=== PATIENT | male | born 1960 | race Caucasian/White ===

== ENCOUNTER → 2024-04-24 | Day surgery (SDC) | payer MEDICARE, MEDICAID ==
[~2024-04-24] VITALS: Ht 170.2 cm; Wt 81.4 kg
[~2024-04-24] MED LIST: ASPI-1264 PO; FEXO-25 PO; IBUP-1985 PO; LIDOcaine 2% (20mg/ml) 5ml vial ONE; MELO-102 PO; OMEP20CA15 PO; ROPIVAcaine 0.5% (5mg/ml) 30ml vial ONE; Thrombin (Bovine) 5,000 unit vial TP ONE; fentaNYL/PF 50MCG/1 ML 2ML syringe ONE; gelatin sponge, absorbable (Gelfoam 100) sponge TP ONE; methylene blue (5mg/ml) 50mg/10ml ampul IV ONE; midazolam 1 mg/ML 2ml injection ONE; propofol inj 0 ML IV ONE; succinylcholine 20mg/ml inj IV ONE; tobramycin sulfate 1.2gm vial ONE; vancomycin 1,000mg inj ONE
[2024-04-24] MEDS: tranexamic acid inj. 1,000 MG in normal saline IV soln 100ML IV ONE (05:30)
[2024-04-24] MEDS: cefazolin 2gm/D5W 100mL 100 ML IV ONE (05:30)
[2024-04-24 10:08] VITALS: BP 139/88; PULSE 61; RESP 16; TEMP 99; O2SAT 96
[2024-04-24 11:05] LABS: BASOPHILS # (AUTO) 0.1 X10'3 (0-0.2); BASOPHILS % (AUTO) 1.3 % (0-1); EOSINOPHILS # (AUTO) 0.4 X10'3 (0-0.9); EOSINOPHILS % (AUTO) 6.4 % (0-6); HEMATOCRIT 35.3 % (42.0-52.0); HEMOGLOBIN 11.5 g/dl (14.0-17.9); LYMPHOCYTES % (AUTO) 16.5 % (21-51); MEAN CORPUSCULAR HEMOGLOBIN 28.5 PG (27.0-31.0); MEAN CORPUSCULAR HGB CONC 32.6 g/dL (33.0-36.5); MEAN CORPUSCULAR VOLUME 87.4 FL (78-98); MEAN PLATELET VOLUME 6.9 FL (7.4-10.4); MONOCYTES # (AUTO) 0.6 X10'3 (0-0.9); MONOCYTES % (AUTO) 9.4 % (2-12); NEUTROPHILS % (AUTO) 66.4 % (42-75); PLATELET COUNT 586 X10'3 (140-440); RED BLOOD COUNT 4.04 X10'6 (4.70-6.10); RED CELL DISTRIBUTION WIDTH 16.5 % (11.5-14.5)
[2024-04-24] MEDS: famotidine 20mg tablet PO ONE (11:05)
[2024-04-24] MEDS: ringers solution, lacted 1,000 ML IV SCH (11:06)
[2024-04-24 11:15] LABS: PRE OP PARTIAL THROMB. TIME 32 SECONDS (22-32); PROTHROMBIN TIME 10.9 SECONDS (9.0-12.0)
[2024-04-24 11:16] LABS: ALANINE AMINOTRANSFERASE 35 U/L (12-78); ALBUMIN 3.3 G/DL (3.4-5.0); ALBUMIN/GLOBULIN RATIO 0.8 (1.1-1.5); ALKALINE PHOSPHATASE 118 IU/L (46-116); ANION GAP 12 (8-16); ASPARTATE AMINO TRANSFERASE 21 U/L (10-37); BILIRUBIN,TOTAL 0.5 MG/DL (0.1-1.0); BLOOD UREA NITROGEN 25 MG/DL (7-18); BUN/CREATININE RATIO 30.5 (10.0-20.0); CALCIUM 9.1 MG/DL (8.5-10.1); CHLORIDE 103 MMOL/L (99-107); CREATININE 0.82 MG/DL (0.60-1.10); GLUCOSE 100 MG/DL (70-104); POTASSIUM 3.9 MMOL/L (3.5-5.1); SODIUM 138 MMOL/L (135-145); TOTAL CARBON DIOXIDE 23.4 MMOL/L (24-32); TOTAL PROTEIN 7.4 G/DL (6.4-8.2); eCRCL 84 ML/MIN; eGFR > 90 ML/MIN
== END | disposition home or self-care (01) ==
LOC: PAS 09:58 → UNDOADMIN 09:58 → PAS IN 09:58 → EDSTATUS 13:00
PROVIDERS: ATTEND Specialist
DX: T84.098A Other mechanical complication of other internal joint prosthesis, initial encounter (principal); Z53.8 Procedure and treatment not carried out for other reasons; Z96.653 Presence of artificial knee joint, bilateral; Y79.2 Prosthetic and other implants, materials and accessory orthopedic devices associated with adverse incidents; Y92.89 Other specified places as the place of occurrence of the external cause
CPT/HCPCS: 36415; 80053; 82948; 85025; 85610; 85730; 86870; 86885; 86900; 86901; 86902; 86905; 86922; 87081; 93005; J0690; J2250; J3010; J3490; J7120; 86920; J0330; J2704; J2795; J3260; J3370; Q9968

== ENCOUNTER 2024-04-27 11:57 | Inpatient (IN) | payer MEDICARE, MEDICAID ==
[~2024-04-27] VITALS: Ht 170.2 cm; Wt 78.8 kg
[2024-04-27] VITALS (25 sets, daily range): BP systolic 102–143; BP diastolic 59–97; PULSE 54–77; RESP 10–24; TEMP 97.9–98.1; O2SAT 93–97
[2024-04-27] MEDS: cefazolin 2gm/D5W 100mL 100 ML IV ONE (11:55)
[2024-04-27] MEDS: tranexamic acid inj. 1,000 MG in normal saline IV soln 100ML IV ONE (11:55)
[~2024-04-27 11:57] MED LIST changes: -LIDOcaine 2% (20mg/ml) 5ml vial ONE; -ROPIVAcaine 0.5% (5mg/ml) 30ml vial ONE; -Thrombin (Bovine) 5,000 unit vial TP ONE; +famotidine 20mg tablet PO ONE; -fentaNYL/PF 50MCG/1 ML 2ML syringe ONE; -gelatin sponge, absorbable (Gelfoam 100) sponge TP ONE; -methylene blue (5mg/ml) 50mg/10ml ampul IV ONE; -midazolam 1 mg/ML 2ml injection ONE; -propofol inj 0 ML IV ONE; -succinylcholine 20mg/ml inj IV ONE; -tobramycin sulfate 1.2gm vial ONE; -vancomycin 1,000mg inj ONE
[2024-04-27] MEDS: famotidine 20mg tablet PO ONE (12:54)
[2024-04-27] MEDS: ringers solution, lacted 1,000 ML IV SCH (12:54)
[2024-04-27] MEDS: vancomycin 1,000mg inj ONE (14:15)
[2024-04-27] MEDS: methylene blue (5mg/ml) 50mg/10ml ampul IV ONE (14:16)
[2024-04-27] MEDS: tobramycin sulfate 1.2gm vial ONE (14:17)
[2024-04-27] MEDS: Thrombin (Bovine) 5,000 unit vial TP ONE (14:17)
[2024-04-27] MEDS: gelatin sponge, absorbable (Gelfoam 100) sponge TP ONE (14:18)
[2024-04-27] MEDS ORDERED: bisacodyl 10mg suppository rectal RC PRN (14:30)
[2024-04-27] MEDS ORDERED: naloxone 0.4 mg/ml inj IV PRN (14:30)
[2024-04-27] MEDS ORDERED: diphenhydrAMINE 25mg capsule PO PRN (14:30)
[2024-04-27] MEDS ORDERED: HYDROcodone/acetaminophen 5mg/325mg tablet PO PRN (14:30)
[2024-04-27] MEDS ORDERED: magnesium hydroxide 30ml (MOM) UD suspension PO PRN (14:30)
[2024-04-27] MEDS ORDERED: ondansetron/PF 4mg/2ml inj IV PRN ×2 (14:30→15:25)
[2024-04-27] MEDS ORDERED: acetaminophen 325mg tablet PO PRN (14:30)
[2024-04-27] MEDS ORDERED: fentaNYL/PF 50MCG/1 ML 2ML syringe ONE ×2 (14:40→15:37)
[2024-04-27] MEDS ORDERED: sevoflurane 250ml liquid IH ONE (14:40)
[2024-04-27] MEDS ORDERED: midazolam 1 mg/ML 2ml injection ONE (14:40)
[2024-04-27] MEDS ORDERED: propofol inj 20 ML IV ONE (14:42)
[2024-04-27] MEDS ORDERED: dexamethasone sod phosphate 4mg/ml inj. ONE (14:42)
[2024-04-27] MEDS ORDERED: LIDOcaine 2% (20mg/ml) 5ml vial ONE (14:42)
[2024-04-27] MEDS ORDERED: ondansetron/PF 4mg/2ml inj ONE (14:42)
[2024-04-27] MEDS ORDERED: ROPIVAcaine 0.5% (5mg/ml) 30ml vial ONE (14:42)
[2024-04-27] MEDS ORDERED: succinylcholine 20mg/ml inj IV ONE (14:42)
[2024-04-27] MEDS ORDERED: hydrALAZINE 20mg/ml inj. IV PRN (15:25)
[2024-04-27] MEDS ORDERED: ringers solution, lacted 1,000 ML IV SCH (15:25)
[2024-04-27] MEDS ORDERED: fentaNYL/PF 50MCG/1 ML 2ML syringe IV PRN ×2 (15:25)
[2024-04-27] MEDS ORDERED: enalaprilat dihydrate 2.5mg/2ml vial IV PRN (15:25)
[2024-04-27] MEDS ORDERED: morphine 4 MG/ML inj SYRINge IV PRN (15:25)
[2024-04-27] MEDS ORDERED: morphine 2 MG/ML inj. syringe IV PRN (15:25)
[2024-04-27] MEDS: vancomycin 1,000mg inj IVT ONE (16:25)
[2024-04-27] MEDS ORDERED: ketamine 50mg/5ml syringe ONE (16:35)
[2024-04-27] MEDS ORDERED: morphine 10mg/ml inj. ONE (16:36)
[2024-04-27] MEDS ORDERED: cetirizine 10mg tablet PO PRN (17:35)
[2024-04-27] MEDS: HYDROcodone/acetaminophen 5mg/325mg tablet PO PRN (19:22)
[2024-04-27] MEDS: potassium cl 20mEq in 1/2 NS 1,000 ML IV SCH (20:13)
[2024-04-27 21:00] LABS: BASOPHILS % (AUTO) 0.3 % (0-1); EOSINOPHILS % (AUTO) 0 % (0-6); HEMATOCRIT 33.2 % (42.0-52.0); HEMOGLOBIN 10.9 g/dl (14.0-17.9); LYMPHOCYTES # (AUTO) 0.3 X10'3 (1.1-4.8); LYMPHOCYTES % (AUTO) 3.6 % (21-51); MEAN CORPUSCULAR HEMOGLOBIN 28.4 PG (27.0-31.0); MEAN CORPUSCULAR HGB CONC 32.8 g/dL (33.0-36.5); MEAN CORPUSCULAR VOLUME 86.6 FL (78-98); MEAN PLATELET VOLUME 7.1 FL (7.4-10.4); MONOCYTES # (AUTO) 0.1 X10'3 (0-0.9); NEUTROPHILS # (AUTO) 8.4 X10'3 (1.8-7.7); NEUTROPHILS % (AUTO) 95.1 % (42-75); PLATELET COUNT 473 X10'3 (140-440); RED BLOOD COUNT 3.84 X10'6 (4.70-6.10); RED CELL DISTRIBUTION WIDTH 16.5 % (11.5-14.5); WHITE BLOOD COUNT 8.8 X10'3 (4.5-11.0)
[2024-04-27 21:17] LABS: ALANINE AMINOTRANSFERASE 27 U/L (12-78); ALBUMIN 2.9 G/DL (3.4-5.0); ALBUMIN/GLOBULIN RATIO 0.8 (1.1-1.5); ALKALINE PHOSPHATASE 110 IU/L (46-116); ANION GAP 11 (8-16); ASPARTATE AMINO TRANSFERASE 19 U/L (10-37); BILIRUBIN,TOTAL 0.4 MG/DL (0.1-1.0); BLOOD UREA NITROGEN 11 MG/DL (7-18); BUN/CREATININE RATIO 11.8 (10.0-20.0); CALCIUM 8.8 MG/DL (8.5-10.1); CHLORIDE 101 MMOL/L (99-107); CREATININE 0.93 MG/DL (0.60-1.10); GLUCOSE 174 MG/DL (70-104); POTASSIUM 3.7 MMOL/L (3.5-5.1); SODIUM 137 MMOL/L (135-145); TOTAL CARBON DIOXIDE 24.7 MMOL/L (24-32); TOTAL PROTEIN 6.6 G/DL (6.4-8.2); eCRCL 74 ML/MIN; eGFR 82 ML/MIN
[2024-04-27 21:25] LABS: MAGNESIUM 1.7 MG/DL (1.5-2.4); PHOSPHORUS 2.8 MG/DL (2.3-4.5)
[2024-04-27 21:52] LABS: THYROID STIMULATING HORMONE 0.24 ulU/ml (0.34-4.50)
[2024-04-28] VITALS (8 sets, daily range): BP systolic 106–133; BP diastolic 66–92; PULSE 53–72; RESP 15–18; TEMP 97.7–98.1; O2SAT 93–98
[2024-04-28] MEDS: cefazolin 2gm/D5W 100mL 100 ML IV SCH ×2 (00:11→08:16)
[2024-04-28 05:00] LABS: BASOPHILS % (AUTO) 0.1 % (0-1); EOSINOPHILS % (AUTO) 0 % (0-6); HEMATOCRIT 30.4 % (42.0-52.0); HEMOGLOBIN 9.9 g/dl (14.0-17.9); LYMPHOCYTES # (AUTO) 0.7 X10'3 (1.1-4.8); LYMPHOCYTES % (AUTO) 12.3 % (21-51); MEAN CORPUSCULAR HEMOGLOBIN 28.3 PG (27.0-31.0); MEAN CORPUSCULAR HGB CONC 32.8 g/dL (33.0-36.5); MEAN CORPUSCULAR VOLUME 86.3 FL (78-98); MEAN PLATELET VOLUME 6.8 FL (7.4-10.4); MONOCYTES # (AUTO) 0.3 X10'3 (0-0.9); MONOCYTES % (AUTO) 5.4 % (2-12); NEUTROPHILS # (AUTO) 4.6 X10'3 (1.8-7.7); NEUTROPHILS % (AUTO) 82.2 % (42-75); PLATELET COUNT 446 X10'3 (140-440); RED BLOOD COUNT 3.52 X10'6 (4.70-6.10); RED CELL DISTRIBUTION WIDTH 16.3 % (11.5-14.5); WHITE BLOOD COUNT 5.6 X10'3 (4.5-11.0)
[2024-04-28 05:15] LABS: ALANINE AMINOTRANSFERASE 26 U/L (12-78); ALBUMIN 2.8 G/DL (3.4-5.0); ALBUMIN/GLOBULIN RATIO 0.8 (1.1-1.5); ALKALINE PHOSPHATASE 103 IU/L (46-116); ANION GAP 10 (8-16); ASPARTATE AMINO TRANSFERASE 20 U/L (10-37); BILIRUBIN,TOTAL 0.5 MG/DL (0.1-1.0); BLOOD UREA NITROGEN 12 MG/DL (7-18); BUN/CREATININE RATIO 14.8 (10.0-20.0); CALCIUM 8.6 MG/DL (8.5-10.1); CHLORIDE 101 MMOL/L (99-107); CREATININE 0.81 MG/DL (0.60-1.10); GLUCOSE 144 MG/DL (70-104); POTASSIUM 4.3 MMOL/L (3.5-5.1); SODIUM 134 MMOL/L (135-145); TOTAL CARBON DIOXIDE 23.2 MMOL/L (24-32); TOTAL PROTEIN 6.4 G/DL (6.4-8.2); eCRCL 84 ML/MIN; eGFR > 90 ML/MIN
[2024-04-28] MEDS: pantoprazole 40mg Tablet.DR PO SCH (07:30)
[2024-04-28] MEDS: aspirin 325mg tablet PO SCH (07:35)
[2024-04-28] MEDS: MELOXICAM 7.5 MG TABLET PO SCH (08:16)
[2024-04-28 10:26] LABS: FREE T4 (FREE THYROXINE) 1.01 NG/DL (0.73-1.40)
[2024-04-28] MEDS ORDERED: THIA100T70 PO (16:17)
[2024-04-28] MEDS ORDERED: FOLI0.8C PO (16:17)
[2024-04-29 05:32] LABS: BASOPHILS # (AUTO) 0.1 X10'3 (0-0.2); EOSINOPHILS # (AUTO) 0.2 X10'3 (0-0.9); EOSINOPHILS % (AUTO) 2.5 % (0-6); HEMATOCRIT 29.7 % (42.0-52.0); HEMOGLOBIN 9.9 g/dl (14.0-17.9); LYMPHOCYTES # (AUTO) 1.3 X10'3 (1.1-4.8); LYMPHOCYTES % (AUTO) 20.2 % (21-51); MEAN CORPUSCULAR HEMOGLOBIN 28.8 PG (27.0-31.0); MEAN CORPUSCULAR HGB CONC 33.4 g/dL (33.0-36.5); MEAN CORPUSCULAR VOLUME 86.4 FL (78-98); MEAN PLATELET VOLUME 7.1 FL (7.4-10.4); MONOCYTES # (AUTO) 0.5 X10'3 (0-0.9); MONOCYTES % (AUTO) 7.1 % (2-12); NEUTROPHILS # (AUTO) 4.5 X10'3 (1.8-7.7); NEUTROPHILS % (AUTO) 69.2 % (42-75); PLATELET COUNT 420 X10'3 (140-440); RED BLOOD COUNT 3.43 X10'6 (4.70-6.10); RED CELL DISTRIBUTION WIDTH 16.4 % (11.5-14.5); WHITE BLOOD COUNT 6.4 X10'3 (4.5-11.0)
[2024-04-29 05:46] LABS: ALANINE AMINOTRANSFERASE 27 U/L (12-78); ALBUMIN 2.7 G/DL (3.4-5.0); ALBUMIN/GLOBULIN RATIO 0.8 (1.1-1.5); ALKALINE PHOSPHATASE 111 IU/L (46-116); ANION GAP 8 (8-16); ASPARTATE AMINO TRANSFERASE 23 U/L (10-37); BILIRUBIN,TOTAL 0.3 MG/DL (0.1-1.0); BLOOD UREA NITROGEN 16 MG/DL (7-18); BUN/CREATININE RATIO 24.6 (10.0-20.0); CALCIUM 8.6 MG/DL (8.5-10.1); CHLORIDE 103 MMOL/L (99-107); CREATININE 0.65 MG/DL (0.60-1.10); GLUCOSE 111 MG/DL (70-104); POTASSIUM 3.7 MMOL/L (3.5-5.1); SODIUM 135 MMOL/L (135-145); TOTAL CARBON DIOXIDE 23.9 MMOL/L (24-32); TOTAL PROTEIN 6.3 G/DL (6.4-8.2); eCRCL 105 ML/MIN; eGFR > 90 ML/MIN
[2024-04-29 06:30] VITALS: BP 108/61; PULSE 52; RESP 19; TEMP 97.9; O2SAT 97
[2024-04-29 11:00] VITALS: BP 103/56; PULSE 56; RESP 16; TEMP 97.9; O2SAT 96
== END 2024-04-29 12:25 | disposition home or self-care (01) | DRG 483 ==
LOC: PAS IN 11:57 → ORTHO 4S 19:25
PROVIDERS: ADMIT Specialist; ATTEND Family Medicine
PROC: 0RRK00Z Replacement of Left Shoulder Joint with Reverse Ball and Socket Synthetic Substitute, Open Approach (ICD-10-PCS; 2024-04-27)
PROC: 3E0T3BZ Introduction of Anesthetic Agent into Peripheral Nerves and Plexi, Percutaneous Approach (ICD-10-PCS; 2024-04-27)
PROC: 3E0T33Z Introduction of Anti-inflammatory into Peripheral Nerves and Plexi, Percutaneous Approach (ICD-10-PCS; 2024-04-27)
PROC: 0RPK0J7 Removal of Synthetic Substitute from Left Shoulder Joint, Glenoid Surface, Open Approach (ICD-10-PCS; principal; 2024-04-27 14:40)
DX: T84.028A Dislocation of other internal joint prosthesis, initial encounter (principal); E87.1 Hypo-osmolality and hyponatremia; I48.0 Paroxysmal atrial fibrillation; X58.XXXA Exposure to other specified factors, initial encounter; Z96.653 Presence of artificial knee joint, bilateral; F17.210 Nicotine dependence, cigarettes, uncomplicated; E66.9 Obesity, unspecified; I49.9 Cardiac arrhythmia, unspecified; Y83.8 Other surgical procedures as the cause of abnormal reaction of the patient, or of later complication, without mention of misadventure at the time of the procedure; Y92.89 Other specified places as the place of occurrence of the external cause; Z79.82 Long term (current) use of aspirin; Z79.899 Other long term (current) drug therapy; Z68.27 Body mass index [BMI] 27.0-27.9, adult
CPT/HCPCS: 36415; 73030; 76000; 80053; 82948; 83735; 84100; 84439; 84443; 85025; 86870; 86885; 86900; 86901; 86902; 86905; 87081; 93306; 97110; 97116; 97161; 97530; A4565; A4618; A6449; A6455; A7000; C1713; C1776; G0378; J0131; J0330; J0690; J1100; J2250; J2274; J2405; J2704; J2795; J3010; J3260; J3370; J3480; J3490; J7120; Q9968